=== PATIENT | female | born 1985 | race Caucasian/White ===

== ENCOUNTER → 2016-08-06 | Outpatient (CLI) | payer OTHER ==
[~2016-08-06] MED LIST: CLEOCIN HCL300 M1 PO; FLEXERIL10 MG PO; IBUPROFEN800 MG PO; LORTAB 7.5-3251 EACH PO; NAPROXEN500 M1 PO; NO MEDICATIONS; NORCO1 TAB 10/3 PO; PREDNISONE PO
== END | disposition home or self-care (01) ==
LOC: CLAB 13:39
DX: C22.0 Liver cell carcinoma (principal)
CPT/HCPCS: 36415; 84703